=== PATIENT | female | born 1965 | race African-American/Black ===

== ENCOUNTER 2017-09-03 18:02 | Emergency (ER) | payer BC ==
[~2017-09-03] VITALS: Ht 165.1 cm; Wt 63.4 kg
[~2017-09-03 18:02] MED LIST: LORTAB 5/3255 MG PO
[2017-09-03 20:12] VITALS: BP 103/68
== END 2017-09-03 20:12 | disposition home or self-care (01) | DRG 563 ==
LOC: ED 18:02
PROC: 2W3VXYZ Immobilization of Left Toe using Other Device (ICD-10-PCS; principal; 2017-09-03)
DX: S92.512A Displaced fracture of proximal phalanx of left lesser toe(s), initial encounter for closed fracture (principal); W22.8XXA Striking against or struck by other objects, initial encounter

== ENCOUNTER 2023-06-16 11:41 | Observation (INO) | payer BC ==
[~2023-06-16] VITALS: Ht 165.1 cm; Wt 72.0 kg
[2023-06-16] VITALS (21 sets, daily range): BP systolic 96–126; BP diastolic 60–84
--- NOTE | 2023-06-16 11:50 | NUR ---
PT TO ROOM WITH STEADY GAIT
--- NOTE | 2023-06-16 12:16 | NUR ---
PROVIDER AT BEDSIDE FOR ASSESSMENT, DISCUSSED POC WITH PT
[2023-06-16] MEDS ORDERED: ASPIRIN 81 MG/TAB PO ONE (12:20)
[2023-06-16 12:38] LABS: BASO% 0.1 % (0-3); EOS% 0.6 % (0-8); HEMOGLOBIN 13.1 g/dl (12.0-16.0); IMMATURE GRANULOCYTES 0.1 % (0.0-5.0); LYMPH% 25.8 % (15-41); MEAN CELL VOLUME 90.3 fL CALC (80.0-100.0); MEAN CORPUSCULAR HGB 28.9 pG CALC (26.0-32.0); MONO% 4.8 % (2-13); NEUT# 6.08 thou/uL (2.00-7.15); NEUT% 68.6 % (42-76); RED BLOOD COUNT 4.54 mill/uL (4.20-5.60); RED CELL DISTRI WIDTH 14.1 % (11.5-15.5)
[2023-06-16 12:40] LABS: ANION GAP 13 (6-22 (CALC)); BUN 18 mg/dL (7-17); BUN/CREATININE RATIO 23 (12-20 (CALC)); CARBON DIOXIDE 22 mmol/l (22-30); CHLORIDE 109 mmol/l (95-108); CREATININE 0.8 mg/dL (0.5-1.0); GFR FOR AFR.AMER. > 60 ML/MIN (>=60 (CALC)); GFR OTHER RACES > 60 ML/MIN (>=60 (CALC)); POTASSIUM 3.8 mmol/l (3.5-5.1); SGOT/AST 34 u/l (14-36); SODIUM 141 mmol/l (137-146); TOTAL PROTEIN 8.1 g/dL (6.3-8.2)
[2023-06-16 12:43] LABS: ALBUMIN 4.5 g/dL (3.2-5.0); ALKALINE PHOSPHATASE 141 u/l (38-126); BILIRUBIN, TOTAL 0.2 mg/dL (0.02-1.3)
--- NOTE | 2023-06-16 13:25 | NUR ---
PT RETURNED FROM CT, PLACED IN BED, BACK ON V/S. WATERS PASS RECIEVED FROM TECH
--- NOTE | 2023-06-16 14:48 | NUR ---
PROVIDER AT BEDSIDE TO DISCUSS POC TO ADMIT, SHE STATED UNDERSTANDING, WISHES TO PROCEED
[2023-06-16 14:51] LABS: URINE BILIRUBIN - DIPSTICK Negative (NEGATIVE); URINE BLOOD DIPSTICK Negative (NEGATIVE); URINE COLOR Yellow; URINE GLUCOSE - DIPSTICK Negative (NEGATIVE); URINE KETONE Negative (NEGATIVE); URINE LEUK ESTERASE Negative (NEGATIVE); URINE NITRITE - DIPSTICK Negative (Negative); URINE PROTEIN - DIPSTICK Negative (NEG-TRACE); URINE UROBILINOGEN - DIPSTICK 0.2 E.U./dL (0.2)
--- NOTE | 2023-06-16 15:15 | NUR ---
PT RESTING IN BED, CALL LIGHT WITHIN REACH
[2023-06-16] MEDS ORDERED: NITROGLYCERIN 0.4 MG/TAB SL PRN (15:50)
[2023-06-16] MEDS ORDERED: MAGNESIUM HYDROXIDE 30 ML UDC PO PRN (15:50)
[2023-06-16] MEDS ORDERED: ACETAMINOPHEN 325 MG/TAB PO PRN (15:50)
--- NOTE | 2023-06-16 16:05 | NUR ---
EDUCATED ON CONT WAIT TIME FOR ADMISSION, PT RESTING IN BED, CALL LIGHT WITHIN REACH, FAMILY AT BEDSIDE
--- NOTE | 2023-06-16 17:05 | NUR ---
PT IN ROOM RESTING WATCHING TV. FAMILY MEMBERS IN ROOM. NO CONCERNS AT THIS TIME. VITALS STABLE. PT IS HOLDING IN ER THERE IS CURRENTLY NO ROOMS AVAILABLE ON [place]
--- NOTE | 2023-06-16 18:05 | NUR ---
PT IN ROOM WITH FAMILY MEMBERS AT BEDSIDE. NO CONCERNS TO REPORT AT THIS TIME. VSS.PENDING BED ON MED SURGE FLOOR
--- NOTE | 2023-06-16 19:05 | NUR ---
PT IN ROOM RESTING. MULTIPLE FAMILY MEMBER IN ROOM AT BEDSIDE WITH PT. NAD. STOLL
--- NOTE | 2023-06-16 20:31 | NUR ---
PT RESTING IN BED. PT EDUACTED ON CONTINUED WAIT TIME TO GET A BED UPSTAIRS. PT STATES UNDERSTANDNG AND DENIES NAY NEEDS AT THIS TIE.
--- NOTE | 2023-06-16 20:40 | NUR ---
PATIENT AMBULATING OUT OF ROOM. PATIENT STATES " I NEED MY DISCHARGE PAPERWORK SO I CAN GO HOME". PRIMARY RN Diamond IGLESIAS NOTIFIED.
--- NOTE | 2023-06-16 20:45 | NUR ---
THIS NURSE GOES INTO PATIENTS ROOM TO VERIFY HER WANTING TO LEAVE. PT STATES YES. THIS NURSE LEAVE ROOM TO GET NECESSARY PAPERWORK.
--- NOTE | 2023-06-16 20:50 | NUR ---
THIS NURSE GOES TO PATIENTS ROOM, PATIENT IS NOT IN ROOM, PTS GOWN LEFT ON BED. PULSE OX AND BP CUFF ON FLOOR. THIS NURSE CHECK IN BATHROOM. PT NOT FOUND. NO IV FOUND REMOVED. THIS NURSE TO CALL PT TO COME BACK SO IV CAN BE PROPERLY REMOVED. TWO NURSE SIGN AMA FORM.
--- NOTE | 2023-06-16 20:55 | NUR ---
pt has walked out of er without notifying nurse. pt still has iv intact. this nurse is to call patient to come back so iv can be properly removed.
[2023-06-16] MEDS ORDERED: ENOXAPARIN SODIUM 40 MG/0.4 ML SYR SC SCH (21:00)
--- NOTE | 2023-06-16 21:11 | NUR ---
THIS NURSE CALLED PATIENT, PT TO RETURN TO [facility] TO GET IV REMOVED.
--- NOTE | 2023-06-16 23:25 | NUR ---
PT RETIRN TO [facility]. IV REMOVED.
== END 2023-06-16 21:50 | disposition left against medical advice (07) | DRG 313 ==
LOC: ED 11:41 → ED-I 15:31 → ED 15:51 → ED-I 15:52
PROVIDERS: Nurse Practitioner; ADMIT Student in an Organized Health Care Education/Training Program; ATTEND Student in an Organized Health Care Education/Training Program
DX: R07.9 Chest pain, unspecified (principal); R06.02 Shortness of breath; R11.0 Nausea; E78.00 Pure hypercholesterolemia, unspecified
CPT/HCPCS: Q9967